=== PATIENT | female | born 1960 | race Caucasian/White ===

== ENCOUNTER 2017-08-26 08:30 | Inpatient (IN) | payer OTHER ==
--- NOTE | 2017-08-23 10:09 | HP ---
Admitting History and Physical - Primary Care Physician PCP: Sandar Abreu - Admission Chief Complaint: left breast cancer History of Present Illness: Patient is a 57 yo female noted to have a left upper outer quad mass (3.5 cm) on screening mammo and US. 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 MRI showed known cancer and normal lymph nodes. Patient is now presenting for left mastectomy with reconstruction, snbx, possible andx. History Source: Patient Limitations to Obtaining History: No Limitations - Past Medical History Cardiovascular: Yes: HTN, Hyperlipdemia Gastrointestinal: Yes: GERD Endocrine: Yes: Diabetes Mellitus - Past Surgical History Past Surgical History: Yes: Cholecystectomy Additional Past Surgical History: Umbilical hernia repair FANNY (2011 sec to prolapse) left salpingoopherctomy (2012) benign Home Medications - Allergies Allergies/Adverse Reactions: Allergies Allergy/AdvReac Type Severity Reaction Status Date / Time No Known Allergies Allergy Verified 08/23/17 10:13 - Home Medications Home Medications (free text): metformin. atorvastatin. omeprazole. propanolol. ASA. losartan. Vitamin D Family Disease History - Family Disease History Family History: Unremarkable Review of Systems - Review of Systems Constitutional: reports: No Symptoms Breasts: reports: See HPI Physical Examination Constitutional: Yes: Obese Breast(s): Yes: Left (No skin changes or nipple retraction noted. left UOQ mass noted without any other suspicous masses or adenopathy bilaterally.) Problem List - Problems (1) Cancer of left breast Code(s): C50.912 - MALIGNANT NEOPLASM OF UNSPECIFIED SITE OF LEFT FEMALE BREAST Qualifiers: Breast location: upper outer quadrant of breast Estrogen receptor status: positive Patient sex: female Qualified Code(s): C50.412 - Malignant neoplasm of upper-outer quadrant of left female breast; Z17.0 - Estrogen receptor positive status [ER+]; Z17.0 - Estrogen receptor positive status [ER+] Assessment/Plan Plan Left mastectomy with snbx, lympho possible andx and reconstruction
[2017-08-23 17:15] VITALS: BMI 39.6
[2017-08-26] MEDS ORDERED: ISOSULFAN BLUE 10 MG/ML VIAL SQ ONE (09:57)
[2017-08-26] MEDS ORDERED: ACETAMINOPHEN 325 MG TABLET (FP) PO PRN (14:02)
[2017-08-26] MEDS ORDERED: ONDANSETRON 4 MG/2 ML VIAL IVPUSH PRN ×2 (14:02→15:33)
[2017-08-26] MEDS ORDERED: CEFAZOLIN 1 GM/D5W 50 ML IVPB SCH (15:00)
[2017-08-26] MEDS ORDERED: NITROGLYCERIN 2% OINTMENT - 1GM PACKET TD ONE ×2 (15:01→15:14)
[2017-08-26] MEDS ORDERED: oxyCODONE HCL 5 MG TABLET PO PRN ×2 (15:30→15:33)
[2017-08-26] MEDS ORDERED: LACTATED RINGERS SOLUTION 1,000 ML IV SCH ×2 (15:30→15:45)
[2017-08-26] MEDS ORDERED: traMADol HCL 50 MG TABLET PO SCH (15:30)
[2017-08-26] MEDS ORDERED: PROMETHAZINE HCL 25 MG/1 ML VIAL IVPB PRN (15:33)
[2017-08-26] MEDS ORDERED: ACETAMINOPHEN 325 MG TABLET (FP) ONE (16:29)
[2017-08-26] MEDS ORDERED: traMADol HCL 50 MG TABLET ONE (16:29)
[2017-08-26] MEDS: ACETAMINOPHEN 325 MG TABLET (FP) PO SCH ×4 (16:30→23:46)
[2017-08-26] MEDS ORDERED: CEFAZOLIN 1 GM/D5W 1 GM/50 ML BAG IVPB SCH (16:45)
[2017-08-26] MEDS: DEXTROSE 5%-0.45% SALINE 1,000 ML IV SCH (17:02)
[2017-08-26] MEDS: traMADol HCL 50 MG TABLET PO SCH ×2 (17:03→22:36)
[2017-08-26] MEDS: diazePAM 2 MG TABLET PO SCH ×2 (17:04→22:35)
[2017-08-26] MEDS: CEFAZOLIN 1 GM/D5W 1 GM/50 ML BAG IVPB SCH (17:34)
[2017-08-26] MEDS: oxyCODONE HCL 5 MG TABLET PO PRN ×2 (17:52→19:33)
[2017-08-26] MEDS ORDERED: PT OWN MED DRAWER 7, Y5N ONE (21:13)
[2017-08-26] MEDS ORDERED: LOSARTAN HCTZ PO SCH (22:00)
[2017-08-26] MEDS ORDERED: ZOLPIDEM TARTRATE 5 MG TABLET PO PRN (22:00)
[2017-08-26] MEDS: ATORVASTATIN CA 80 MG TABLET (FP) PO SCH (22:35)
[2017-08-26] MEDS: metFORMIN HCL 500 MG TABLET (FP) PO SCH (22:35)
[2017-08-26] MEDS: HYDROCHLOROTHIAZIDE 25 MG TABLET (FP) PO SCH (22:37)
[2017-08-26] MEDS: PROPRANOLOL HCL 10 MG TABLET (FP) PO SCH (22:37)
[2017-08-26] MEDS: LOSARTAN POTASSIUM 50 MG TABLET (FP) PO SCH (22:37)
[2017-08-27] MEDS ORDERED: PT OWN MED DRAWER 7, Y5N ONE ×4 (02:21→21:07)
[2017-08-27] MEDS: CEFAZOLIN 1 GM/D5W 1 GM/50 ML BAG IVPB SCH ×2 (02:46→11:01)
[2017-08-27] MEDS: ACETAMINOPHEN 325 MG TABLET (FP) PO SCH ×6 (02:59→23:28)
[2017-08-27] MEDS: diazePAM 2 MG TABLET PO SCH ×3 (06:17→21:14)
[2017-08-27 09:06] LABS: HEMATOCRIT 33.9 % (32.4-45.2); HEMOGLOBIN 11.6 GM/dl (10.7-15.3); MCH 29.5 pg (25.7-33.7); MCHC 34.1 g/dl (32.0-36.0); MEAN CELL VOLUME 86.5 fl (80-96); MEAN PLT VOLUME 8.3 fl (7.5-11.1); PLATELET COUNT 345 K/MM3 (134-434); RBC 3.92 M/mm3 (3.60-5.2); RDW 13.5 % (11.6-15.6); WHITE BLOOD COUNT 13.1 K/mm3 (4.0-10.8)
--- NOTE | 2017-08-27 09:19 | PN ---
Progress Note, Physician Chief Complaint: Left breast cancer S/P left total mastectomy sentenel node biopsy POD#1 History of Present Illness: patient is sitting up , eating , pain managed with current treatment plan , - Current Medication List Current Medications: Active Medications Acetaminophen (Tylenol -) 650 mg PO Q4H [facility] Last Admin: 08/27/17 02:59 Dose: 650 mg Atorvastatin Calcium (Lipitor -) 80 mg PO [facility] Last Admin: 08/26/17 22:35 Dose: 80 mg Diazepam (Valium -) 2 mg PO TID [facility] Last Admin: 08/27/17 06:17 Dose: 2 mg Fentanyl (Sublimaze Injection -) 50 mcg IVPUSH [id number] PRN PRN Reason: PAIN-PACU ORDER X 4 DOSES ONLY Last Admin: 08/26/17 16:18 Dose: 25 mcg Heparin Sodium (Porcine) (Heparin -) 5,000 unit SQ BID [facility] Hydrochlorothiazide (Hctz -) 25 mg PO [facility] Last Admin: 08/26/17 22:37 Dose: 25 mg Dextrose/Sodium Chloride (D5-1/2ns -) 1,000 mls @ 100 mls/hr IV ASDIR [facility] Last Admin: 08/26/17 17:02 Dose: Not Given Lactated Ringer's (Lactated Ringers Solution) 1,000 mls @ 75 mls/hr IV ASDIR [facility] Last Admin: 08/26/17 17:03 Dose: Not Given Cefazolin Sodium (Ancef 1 Gm Premixed Ivpb -) 1 gram in 50 mls @ 100 mls/hr IVPB Q6H-IV [facility] Losartan Potassium (Cozaar -) 100 mg PO [facility] Last Admin: 08/26/17 22:37 Dose: 100 mg Metformin HCl (Glucophage -) 1,000 mg PO BID [facility] Last Admin: 08/26/17 22:35 Dose: 1,000 mg Ondansetron HCl (Zofran Injection) 4 mg IVPUSH Q6H PRN PRN Reason: NAUSEA AND/OR VOMITING Last Admin: 08/26/17 16:12 Dose: 4 mg Oxycodone HCl (Roxicodone -) 5 mg PO Q4H PRN PRN Reason: Pain Level < 4 Last Admin: 08/26/17 19:33 Dose: 5 mg Oxycodone HCl (Roxicodone -) 10 mg PO Q4H PRN PRN Reason: PAIN LEVEL 6-10 Pantoprazole Sodium (Protonix -) 40 mg PO DAILY [facility] Promethazine HCl (Phenergan Injection -) 12.5 mg IVPB Q6H PRN PRN Reason: NAUSEA-FOR RESCUE AFTER 15 MIN Propranolol HCl (Inderal -) 20 mg PO BID [facility] Last Admin: 08/26/17 22:37 Dose: 20 mg Tramadol HCl (Ultram -) 50 mg PO QID [facility] Last Admin: 08/26/17 22:36 Dose: 50 mg Zolpidem Tartrate (Ambien -) 5 mg PO HS PRN PRN Reason: Insomnia - Objective Vital Signs: Vital Signs Temperature 98.4 F 08/27/17 05:27 Pulse Rate 92 H 08/27/17 05:27 Respiratory Rate 18 08/27/17 05:27 Blood Pressure 120/62 08/27/17 05:27 O2 Sat by Pulse Oximetry (%) 97 08/27/17 05:27 Constitutional: Yes: No Distress Breast(s): Yes: Other (flap viable and warm, incision intact, no signs of infection, yobany drains functioning well) Labs: CBC, BMP 08/27/17 08:04 Problem List - Problems (1) Cancer of left breast Code(s): C50.912 - MALIGNANT NEOPLASM OF UNSPECIFIED SITE OF LEFT FEMALE BREAST Qualifiers: Breast location: upper outer quadrant of breast Estrogen receptor status: positive Patient sex: female Qualified Code(s): C50.412 - Malignant neoplasm of upper-outer quadrant of left female breast; Z17.0 - Estrogen receptor positive status [ER+]; Z17.0 - Estrogen receptor positive status [ER+] Assessment/Plan continue IV antibiotics spirometry SCD continue current pain management consult with hospitalist , patient is a diabetic plan for discharge tomorrow
--- NOTE | 2017-08-27 09:21 | PN ---
Progress Note (short form) - Note Progress Note: VSS AF ROSAURA thin and functioning All tissues currently viable Ambulating Dressings changed. Pain well controled Plan for discharge tomorrow with f/u 1 week
[2017-08-27] MEDS: metFORMIN HCL 500 MG TABLET (FP) PO SCH ×2 (09:24→21:23)
[2017-08-27] MEDS: CEFAZOLIN 1 GM/D5W 1 GRAM/50 ML BAG IVPB SCH ×3 (09:24→21:23)
[2017-08-27] MEDS: PANTOPRAZOLE 40 MG TABLET (FP) PO SCH (09:25)
[2017-08-27] MEDS: PROPRANOLOL HCL 10 MG TABLET (FP) PO SCH ×2 (09:25→21:22)
[2017-08-27] MEDS: traMADol HCL 50 MG TABLET PO SCH ×4 (09:25→21:13)
[2017-08-27] MEDS: HEPARIN NA (PORCINE) 5,000 UNITS/ML 1ML VIAL SQ SCH ×2 (09:26→21:13)
--- NOTE | 2017-08-27 10:49 | OP ---
DATE OF OPERATION: 08/26/2017 TITLE OF PROCEDURE: Left-sided breast reconstruction using tissue president and chief operating officer acellular dermal matrix and a left axillary complex wound closure, 4 cm. ATTENDING SURGEON: Kaushal Jensen MD The procedure was performed in combination with a left-sided mastectomy and sentinel lymph node biopsy performed by Dr. Sandra Abreu and her team. DESCRIPTION OF PROCEDURE: The patient was marked in the holding area for incisions. All risks, benefits, and alternatives to the procedure were understood with agreement to proceed. The patient was awake and aware of all incisions and resulting scars. Sequential compression stockings were applied. Antibiotics were given preoperatively. She was brought to the operating room and placed in a supine position. Position was carefully checked by surgical anesthesia teams, padded properly. She was initially positioned and draped by the mastectomy team. Mastectomy was performed as per Dr. Abreu operative note, after which my reconstruction commences. Reconstruction was performed as follows: The lateral border of the pectoralis major muscle was identified and a subpectoral plane was dissected. The inferior and inferomedial fibers of the pectoralis major muscle were divided in order to accommodate a pocket for the tissue president and chief operating officer. Once this was done, the inframammary fold was marked; 2 cm inferior to the inframammary fold were then dissected in order to lower the inframammary fold to compensate for the contralateral breast ptosis. These markings were made on the chest wall. Dermacell Acellular Dermal Matrix was rinsed in triple antibiotic solution, was oriented properly, and secured to the inframammary fold as well as the lateral mammary fold. Two sheets of 8 x 16 Dermacell were trimmed to conform and were secured in position with a running locking 2-0 PDS suture. The two sheets were secured to one another. At this point, the gloves were changed. A tissue president and chief operating officer was brought onto the field, rinsed with triple antibiotic solution, evacuated of all air, placed, oriented properly, secured with using the suture tabs of this 2-0 PDS suture. Using a closed filling system, the tissue president and chief operating officer was inflated to 250 mL of saline. The free edge of the acellular dermal matrix was then sewn to the free edge of the pectoralis major muscle with a running 2-0 PDS suture. After this, the mastectomy wounds were copiously irrigated with triple antibiotic solution, and hemostasis was meticulously achieved. Triple antibiotic solution was 1 L of normal saline, 50,000 units of Bacitracin, 80 mg of gentamicin, and 2 g of Ancef. The SPY scan was performed in order to assess the viability of the skin flaps. Viability was good with the exception of one area on the inferior skin flap. However, it was determined that excision of that area would require a vertical incision and placing corners on the inferior skin flap which may further compromise the skin. Decision, instead, was made to close without tension over drains and apply nitro paste to the area of concern. Should there be a later demarcation, it will be safer to excise that area in delayed setting. Skin edges were excised with facelift scissors. The deep capsular breast tissue was closed with a running 3-0 Monocryl suture. Skin was then closed with a running locking 3-0 Monocryl suture within the dermis followed by running subcuticular 3-0 Monocryl suture. This was done over two separate size 10 flat ROSAURA drains, brought out through lateral stab wound incisions, secured with a 3-0 silk suture. One drain was in the inferior recess of the wound, and the other drain was in the axilla and superior recess of the wound. The axilla was then closed separately with deep 3-0 Monocryl suture followed by a series of interrupted buried deep dermal 3-0 Monocryl sutures followed by a running subcuticular 3-0 Monocryl suture. All wounds were dressed with Steri-Strips. Nitro paste was placed in the area of skin flap concern on the inferior mastectomy flap. Then, 4x4s and a surgical bra were applied. Patient was awoken from anesthesia having tolerated the procedure well. Shivani [id number]
--- NOTE | 2017-08-27 11:51 | PN ---
Progress Note (short form) - Note Progress Note: ANESTHESIA POSTOP 57 YO F POD#1 S/P L BREAST MASTECTOMY WITH RECONSTRUCTION S: Patient sitting beside, drinking, without complaint, pain minimal and well controlled, tolerating PO O: Vitals WNL A/P: Patient doing well s/p GA, continue current care, encouraged ambulation and use of IS
--- NOTE | 2017-08-27 12:59 | CONSULT ---
Consultation: REQUESTING PROVIDER: CONSULT REQUEST: We have been asked to medically evaluate this patient for medical mangament. HISTORY OF PRESENT ILLNESS: Patient is a 57 yo female, with a past medical history of DM, hypertension, invasive ductal CA, pt is s/p left mastectomy with reconstruction, sent node biopsy, POD #1. REVIEW OF SYSTEMS: CONSTITUTIONAL: Absent: fever, chills, diaphoresis, generalized weakness, malaise, loss of appetite, weight change HEENT: Absent: rhinorrhea, nasal congestion, throat pain, throat swelling, difficulty swallowing, mouth swelling, ear pain, eye pain, visual changes CARDIOVASCULAR: Absent: chest pain, syncope, palpitations, irregular heart rate, lightheadedness , peripheral edema RESPIRATORY: Absent: cough, shortness of breath, dyspnea with exertion, orthopnea, wheezing, stridor, hemoptysis GASTROINTESTINAL: Absent: abdominal pain, abdominal distension, nausea, vomiting, diarrhea, constipation, melena, hematochezia GENITOURINARY: Absent: dysuria, frequency, urgency, hesitancy, hematuria, flank pain, genital pain MUSCULOSKELETAL: present: pain to surgical site Absent: myalgia, arthralgia, joint swelling, back pain, neck pain SKIN: Absent: rash, itching, pallor HEMATOLOGIC/IMMUNOLOGIC: Absent: easy bleeding, easy bruising, lymphadenopathy, frequent infections ENDOCRINE: Absent: unexplained weight gain, unexplained weight loss, heat intolerance, cold intolerance NEUROLOGIC: Absent: headache, focal weakness or paresthesias, dizziness, unsteady gait, seizure, mental status changes, bladder or bowel incontinence PSYCHIATRIC: Absent: anxiety, depression, suicidal or homicidal ideation, hallucinations. PHYSICAL EXAMINATION Vital Signs - 24 hr 08/26/17 08/26/17 08/26/17 15:31 15:35 15:40 Temperature 98.5 F Pulse Rate 89 88 105 H Respiratory 16 15 17 Rate Blood Pressure 137/71 128/66 123/60 O2 Sat by Pulse 97 97 98 Oximetry (%) 08/26/17 08/26/17 08/26/17 15:45 15:50 16:05 Temperature Pulse Rate 102 H 100 H 82 Respiratory 15 14 115 H Rate Blood Pressure 113/69 112/61 113/57 O2 Sat by Pulse 96 100 99 Oximetry (%) 08/26/17 08/26/17 08/26/17 16:20 16:35 16:43 Temperature 98.5 F Pulse Rate 83 98 H 98 H Respiratory 14 14 14 Rate Blood Pressure 108/55 110/65 110/65 O2 Sat by Pulse 96 98 Oximetry (%) 08/26/17 08/26/17 08/27/17 17:10 22:02 05:27 Temperature 98.0 F 98.1 F 98.4 F Pulse Rate 100 H 98 H 92 H Respiratory 14 18 18 Rate Blood Pressure 128/76 124/67 120/62 O2 Sat by Pulse 97 96 97 Oximetry (%) 08/27/17 08:00 Temperature Pulse Rate Respiratory Rate Blood Pressure O2 Sat by Pulse 97 Oximetry (%) GENERAL: Awake, alert, and fully oriented, in no acute distress. HEAD: Normal with no signs of trauma. EYES: Pupils equal, round and reactive to light, extraocular movements intact, sclera anicteric, conjunctiva clear. No lid lag. EARS, NOSE, THROAT: Ears normal, nares patent, oropharynx clear without exudates. Moist mucous membranes. NECK: Normal range of motion, supple without lymphadenopathy, JVD, or masses. LUNGS: Breath sounds equal, clear to auscultation bilaterally. No wheezes, and no crackles. No accessory muscle use. HEART: Regular rate and rhythm, normal S1 and S2 without murmur, rub or gallop. ABDOMEN: Soft, nontender, not distended, normoactive bowel sounds, no guarding, no rebound, no masses. No hepatomegaly or splenomegaly. MUSCULOSKELETAL: Normal range of motion at all joints. No bony deformities or tenderness. No CVA tenderness. UPPER EXTREMITIES: 2+ pulses, warm, well-perfused. No cyanosis. No clubbing. Cap refill <2 seconds. No peripheral edema. LOWER EXTREMITIES: 2+ pulses, warm, well-perfused. No calf tenderness. No peripheral edema. NEUROLOGICAL: Cranial nerves II-XII intact. Normal speech. Normal gait. PSYCHIATRIC: Cooperative. Good eye contact. Appropriate mood and affect. SKIN: surgical site, ROSAURA x 2, scant serrous sang drainage, sutures intact, no erythema wound well approximated Laboratory Results - last 24 hr 08/26/17 08/26/17 08/26/17 16:00 16:08 22:11 WBC RBC Hgb Hct MCV MCH MCHC RDW Plt Count MPV POC Glucometer 176 202 HIV 1&2 Antibody Screen Negative HIV P24 Antigen Negative 08/27/17 08/27/17 06:29 08:04 WBC 13.1 H RBC 3.92 Hgb 11.6 Hct 33.9 MCV 86.5 MCH 29.5 MCHC 34.1 RDW 13.5 Plt Count 345 MPV 8.3 POC Glucometer 130 HIV 1&2 Antibody Screen HIV P24 Antigen Active Medications Generic Name Dose Route Start Last Admin Trade Name Freq PRN Reason Stop Dose Admin Acetaminophen 650 mg 08/26/17 15:30 08/27/17 12:02 Tylenol - PO 650 mg Q4H JANELLE Administration Atorvastatin Calcium 80 mg 08/26/17 22:00 08/26/17 22:35 Lipitor - PO 80 mg HS JANELLE Administration Diazepam 2 mg 08/26/17 16:30 08/27/17 06:17 Valium - PO 2 mg TID JANELLE Administration Fentanyl 50 mcg 08/26/17 15:33 08/26/17 16:18 Sublimaze Injection - IVPUSH 25 mcg [id number] PRN Administration PAIN-PACU ORDER X 4 DOSES ONLY Heparin Sodium (Porcine) 5,000 unit 08/27/17 10:00 08/27/17 09:26 Heparin - SQ 5,000 unit BID JANELLE Administration Hydrochlorothiazide 25 mg 08/26/17 22:00 08/26/17 22:37 Hctz - PO 25 mg HS JANELLE Administration Dextrose/Sodium Chloride 1,000 mls @ 100 mls/hr 08/26/17 14:15 08/26/17 17:02 D5-1/2ns - IV Not Given ASDIR JANELLE Cefazolin Sodium 1 gram in 50 mls @ 100 mls/hr 08/27/17 09:00 08/27/17 09:24 Ancef 1 Gm Premixed Ivpb - IVPB 100 mls/hr Q6H-IV JANELLE Administration Losartan Potassium 100 mg 08/26/17 22:00 08/26/17 22:37 Cozaar - PO 100 mg HS JANELLE Administration Metformin HCl 1,000 mg 08/26/17 22:00 08/27/17 09:24 Glucophage - PO 1,000 mg BID JANELLE Administration Ondansetron HCl 4 mg 08/26/17 15:33 08/26/17 16:12 Zofran Injection IVPUSH 4 mg Q6H PRN Administration NAUSEA AND/OR VOMITING Oxycodone HCl 5 mg 08/26/17 15:27 08/26/17 19:33 Roxicodone - PO 5 mg Q4H PRN Administration Pain Level < 4 Oxycodone HCl 10 mg 08/26/17 15:30 Roxicodone - PO Q4H PRN PAIN LEVEL 6-10 Pantoprazole Sodium 40 mg 08/27/17 10:00 08/27/17 09:25 Protonix - PO 40 mg DAILY JANELLE Administration Promethazine HCl 12.5 mg 08/26/17 15:33 Phenergan Injection - IVPB Q6H PRN NAUSEA-FOR RESCUE AFTER 15 MIN Propranolol HCl 20 mg 08/26/17 22:00 08/27/17 09:25 Inderal - PO 20 mg BID JANELLE Administration Tramadol HCl 50 mg 08/26/17 16:30 08/27/17 09:25 Ultram - PO 50 mg QID JANELLE Administration Zolpidem Tartrate 5 mg 08/26/17 22:00 Ambien - PO HS PRN Insomnia ASSESSMENT/PLAN: 1) heme/onc invasive ductal ca, s/p left breast mastectomy - POD #1, prn pain medication - followed by Dr Abreu/Levon 2) endo NIDDM - continue metformin advise fingersticks achs 3) cardiovascular hypertension - continue inderal, losartan, and hctz, b/p at goal Dispo: We will continue to follow the patient. Thank you for this consultative opportunity. Visit type - Emergency Visit Emergency Visit: No - New Patient This patient is new to me today: Yes Date on this admission: 08/27/17 - Critical Care Critical Care patient: No
[2017-08-27] MEDS: DEXTROSE 5%-0.45% SALINE 1,000 ML IV SCH (16:26)
[2017-08-27] MEDS: HYDROCHLOROTHIAZIDE 25 MG TABLET (FP) PO SCH (21:14)
[2017-08-27] MEDS: LOSARTAN POTASSIUM 50 MG TABLET (FP) PO SCH (21:14)
[2017-08-27] MEDS: ATORVASTATIN CA 80 MG TABLET (FP) PO SCH (21:14)
[2017-08-28] MEDS: CEFAZOLIN 1 GM/D5W 1 GRAM/50 ML BAG IVPB SCH ×2 (02:33→11:56)
[2017-08-28] MEDS: ACETAMINOPHEN 325 MG TABLET (FP) PO SCH ×2 (05:52→10:00)
[2017-08-28] MEDS: diazePAM 2 MG TABLET PO SCH (06:50)
[2017-08-28 07:39] VITALS: BP 115/62; PULSE 72; TEMP 98.1
[2017-08-28] MEDS: oxyCODONE HCL 5 MG TABLET PO PRN (08:20)
--- NOTE | 2017-08-28 08:43 | OP ---
DATE OF OPERATION: 08/26/2017 PREOPERATIVE DIAGNOSIS: Left breast cancer. POSTOPERATIVE DIAGNOSIS: Left breast cancer. PROCEDURE: Left total mastectomy and sentinel node biopsy with immediate reconstruction with tissue sawmill manager. SURGEONS: Ryan Childers MD and Kaushal Jensen MD FISHING TOOL OPERATOR: JAYDEN Levin ANESTHESIA: General. ANESTHESIOLOGIST: Manish Beasley MD SPECIMENS: 1. [place] node. 2. [place] node. 3. Right mastectomy. DRAINS: Two No. 10 J-Ps. INDICATION FOR PROCEDURE: The patient is a 57-year-old woman who was noted to have a left upper outer quadrant mass measuring 3.5 cm on screening mammogram and ultrasound. Ultrasound-guided core biopsy showed invasive ductal cancer. MRI showed the known cancer and normal-appearing lymph nodes. After a discussion of her surgical options, she chose mastectomy with reconstruction. She will be getting reconstruction by Dr. Jensen using a tissue sawmill manager. The procedures, risks and complications were discussed with her prior to surgery. PROCEDURE: The patient was taken to Nuclear Medicine where she underwent lymphoscintigraphy. She was then taken back to the ambulatory surgical unit where informed consent was obtained. Sequential compression devices were placed on both legs. She was taken to the operating room and placed on the operating table in the supine position. She was intubated. She received antibiotics prior to surgery. Both breasts and upper abdomen were prepped and draped in the usual fashion. A timeout was performed. Examination of the left breast showed a mass in the upper outer quadrant. The breast was injected with Lymphazurin and massaged for 5 minutes. An incision was made in the axilla. The incision was deepened using electrocautery until the axillary fat pad was exposed. The Navigator probe was used to identify an area of high counts. Dissection in this region revealed 2 small lymph nodes. There were blue lymphatics leading to the nodes. The nodes were removed and sent for frozen section. Subsequent dissection revealed a blue node deep in the axilla. This node was removed and sent for frozen section. Frozen section analysis showed 5 nodes which were all negative. Attention was then turned to the mastectomy. An elliptical incision was made around the nipple-areolar complex. Electrocautery was used to create flaps. The superior flap was created up to the clavicle. Flap was continued medially to the sternal border and laterally to the axilla. The inferior flap continued towards the junction with the abdominal musculature. The breast was removed along with the underlying pectoralis major fascia. In the tail of the breast 2 blue nodes were identified which were included with the specimen. The breast was marked with a long lateral stitch and a short superior stitch. The breast was taken to Mammography for a specimen radiograph. The breast was then placed in formalin and sent to Pathology. The procedure then continued with the reconstruction. This will be dictated as a separate procedure by Dr. Jensen. He will also dictate the closure and placement of the drains. At the end of the procedure, all sponge, lap and instrument counts were correct. The wounds were dressed with sterile dressings and a surgical bra was placed. The patient was extubated and taken to the PACU in satisfactory condition. RYAN CHILDERS M.D. [id number] MTDD
[2017-08-28] MEDS: PROPRANOLOL HCL 10 MG TABLET (FP) PO SCH (10:00)
[2017-08-28] MEDS: HEPARIN NA (PORCINE) 5,000 UNITS/ML 1ML VIAL SQ SCH (10:00)
[2017-08-28] MEDS: traMADol HCL 50 MG TABLET PO SCH (10:00)
[2017-08-28] MEDS: PANTOPRAZOLE 40 MG TABLET (FP) PO SCH (10:00)
[2017-08-28] MEDS ORDERED: PT OWN MED DRAWER 7, Y5N ONE (10:09)
[2017-08-28] MEDS: metFORMIN HCL 500 MG TABLET (FP) PO SCH (10:56)
--- NOTE | 2017-08-28 11:02 | DS ---
Physical Examination Vital Signs: Vital Signs Temperature 98.1 F 08/28/17 06:00 Pulse Rate 72 08/28/17 06:00 Respiratory Rate 19 08/28/17 06:00 Blood Pressure 115/62 08/28/17 06:00 O2 Sat by Pulse Oximetry (%) 97 08/28/17 07:38 Wound/Incision: Yes: Clean/Dry (No erythema or drainage. Skin flaps warm and viable. JPs with serosanguineous effluent.) Labs: CBC, BMP 08/27/17 08:04 Discharge Summary Reason For Visit: LEFT BREAST CA Procedures: Principal: Left total mastectomy, sentinel node biopsy, and insertion of tissue customer experience specialist Hospital Course: Patient did well after surgery. Pain was well controlled. Condition: Good - Instructions Diet, Activity, Other Instructions: Post Operative Instructions - [facility] We hope your recovery will be uneventful. For those of you who have been given general anesthesia, there is a possibility you might have some lightheadedness and possibly nausea. It is important that each patient, especially those who have had general anesthesia, follow these instructions, please: 1. Do NOT operate a motor vehicle for 24 hours. 2. Do NOT drink any alcoholic beverages for 24 hours. 3. Do NOT take any sedatives, narcotics, or tranquilizers for 24 hours unless specifically ordered by your surgeon. 4. Do NOT undertake any strenuous exercise or outside activity for 24 hours unless specifically permitted by your surgeon. 5. Eat light foods that are easy to digest. If you have any problems with nausea and vomiting, lie down and rest. If it continues, call your surgeon. 6. Call your surgeon AT ONCE if you have problems with: a. Bleeding b. Urinating c. Excessive pain or drainage d. Numbness If any problems occur, call your physician first. If you cannot reach him/her, call the Ambulatory Surgery Unit at [phone], or the Emergency Room at . Follow up with Drs. Moyer / Gopal in 7 days. Medication: Vicodin E-S OR Percocet 1-2 tablets every 4-6 hrs as needed for 5-7 days. Wound Care: Keep wound dry and clean for 48 hours. You may remove the dressing after 48 hours and may shower. Keep steri-strips in place until follow-up appointment No heavy lifting or strenuous activities. BREAST SURGERY INSTRUCTIONS Alvaro Moyer M.D., FACS Mahesh Moyer M.D., FACS Tariq Herron M.D., FACS 1. Please call the office at to make a follow up appointment with your surgeon. This number can be also used for any urgent issues you may have. 2. Call us immediately if any of the following occur: *Bleeding from the incision or drain site (a small amount is normal) *Fever or chills *Redness and worsening tenderness around the surgical site *Drainage of pus or fluid from the incision or drain site 3. You may change the surgical dressing two (2) days after your surgery, and may shower then. If you have drains, you may shower after they have been removed, until then take a sponge bath. 4. It is normal for there to be some bruising and tenderness around the surgical site, and the breast may also be firm in this area. 5. Please wear a comfortable bra (sports or surgical bra) all day and all night until your first follow-up visit with your surgeon. 6. The pain medicine you have been prescribed may make you constipated; make sure you drink plenty of water. You may use an over the counter laxative if needed. 7. You may resume your normal diet after surgery, although you may want to avoid rich foods for the first twenty-four (24) hours after surgery. Alcoholic drinks should be avoided while taking the prescribed pain medicine. 8. You may resume normal activities as long as there is no discomfort, but do not do upper body exercises until after your follow-up appointment. Do not lift anything heavier than a large phone book. You may resume driving once you have stopped taking the prescribed pain medicine and feel comfortable doing arm movements. WEAR BRA< NO SHOWER< EMPTY AND RECORD [employer] OUTPUT Referrals: Sandra Abreu MD [Staff Physician] - Kaushal Jensen MD [Staff Physician] - Disposition: HOME - Home Medications Comprehensive Discharge Medication List: Ambulatory Orders Aspirin [Aspirin EC] 81 mg PO DAILY 08/23/17 Atorvastatin Ca [Lipitor] 80 mg PO HS 08/23/17 Losartan-Hctz 100-25 mg Tab 1 each PO HS 08/23/17 Metformin HCl [Metformin HCl ER] 1,000 mg PO BID 08/23/17 Omeprazole 40 mg PO DAILY 08/23/17 Propranolol HCl 20 mg PO BID 08/23/17 Cefadroxil 500 mg PO BID #20 capsule 08/27/17 Oxycodone HCl/Acetaminophen [Percocet 5-325 mg Tablet] 1 - 2 tab PO Q6H PRN #30 tab MDD 6 08/27/17
--- NOTE | 2017-09-03 09:28 | PATH ---
Surgical Pathology Report Patient Name: FELICIA VÁZQUEZ Med. Rec. #: [id number] /Age/Gender: 1960 (Age: 57) / F Account: [id number] Location: [facility] MED-SURG Taken: 08/26/2017 Received: 08/26/2017 Reported: 09/03/2017 Physicians: Sandra Abreu M.D. Specimen(s) Received A: LEFT AXILLARY SENTINEL NODE. FS B: LEFT AXILLARY SENTINEL NODE. FS C: LEFT MASTECTOMY D: LEFT AXILLARY EXTRA FAT Clinical History None Provided Intraoperative Consult Diagnosis A. Left axillary sentinel node #2, frozen section: Four negative lymph nodes (0/4). Note: Frozen section evaluation is limited due to the fatty nature of the specimen. B. Left axillary sentinel node #3, frozen section: One negative lymph node (0/1). Note: Frozen section evaluation is limited due to the fatty nature of the specimen. Amadeo Adrian M.D., 08/26/17 Final Diagnosis A. LYMPH NODES, LEFT AXILLARY SENTINEL NODE #2, EXCISION: THREE BENIGN LYMPH NODES (0/3) BY STANDARD HEMATOXYLIN AND EOSIN STAIN (MULTIPLE LEVELS EXAMINED). B. LYMPH NODE, LEFT AXILLARY SENTINEL NODE #3, EXCISION: ONE BENIGN LYMPH NODE (0/1) BY STANDARD HEMATOXYLIN AND EOSIN STAIN (MULTIPLE LEVELS EXAMINED). C. LEFT BREAST, MASTECTOMY: MODERATELY DIFFERENTIATED INVASIVE DUCTAL CARCINOMA, JULIO GRADE 2 OF 3 (TUBULE SCORE 2 OF 3, NUCLEAR GRADE 2 OF 3, MITOTIC SCORE TO 3, TOTAL 6 OF 9), GROSSLY MEASURING 3.4 CM IN GREATEST DIMENSION. MINOR COMPONENT OF DUCTAL CARCINOMA IN SITU (DCIS), INTERMEDIATE NUCLEAR GRADE, CRIBRIFORM PATTERN WITH CENTRAL NECROSIS PRESENT. CARCINOMA IS PRESENT THE UPPER OUTER QUADRANT, AND INVASIVE AND IN SITU CARCINOMA ARE AT LEAST 1.2 CM FROM THE NEAREST (ANTERIOR) MARGIN. NO LYMPH VASCULAR INVASION IDENTIFIED. REMAINING BREAST TISSUE WITH FOCAL ATYPICAL LOBULAR HYPERPLASIA (ALH), ARISING IN A BACKGROUND OF FIBROCYSTIC CHANGES INCLUDING USUAL DUCTAL HYPERPLASIA (UDH), COLUMNAR CELL CHANGE, INTRADUCTAL PAPILLOMATOSIS, STROMAL FIBROSIS, DUCTAL DILATATION, CYSTIC APOCRINE METAPLASIA, AND ASSOCIATED CALCIFICATION. D. LEFT AXILLARY FAT, EXCISION: BENIGN ADIPOSE TISSUE. NO LYMPH NODES IDENTIFIED. Comment: Immunohistochemical stains performed at [facility], [place], [place] ([id number]) and interpreted at [facility] show the following results: No "inside-out" pattern is identified with ADRIAN. No lymph vascular invasion is identified with D2-40, CD31, CD34 stains. Also see prior Slide Review [id number]. Comments Breast Invasive Carcinoma: Surgical Pathology Cancer Case Summary Based on AJCC/UICC TNM, 7th edition Procedure _X__ Total mastectomy (including nipple and skin) Lymph Node Sampling (select all that apply) (required only if lymph nodes are present in the specimen) _X__ [place] lymph node(s) Specimen Laterality _X__ Left Tumor Size: Size of Largest Invasive Carcinoma Greatest dimension of largest focus of invasion over 1 mm: 34 mm Tumor Focality _X__ Single focus of invasive carcinoma Macroscopic and Microscopic Extent of Tumor Skin _X__ Invasive carcinoma does not invade into the dermis or epidermis Nipple _X__ DCIS does not involve the nipple epidermis Ductal Carcinoma In Situ (DCIS) _X__ DCIS is present _X__ as a minor component (< 25% of tumor) Histologic Type of Invasive Carcinoma : _X__ Invasive carcinoma of no special type (ductal, not otherwise specified) Histologic Grade: (Julio Histologic Score) Tubular Differentiation _X__ Score 2 Nuclear Pleomorphism _X__ Score 2 Mitotic Rate _X__ Score 2 Overall Grade _X__ Grade 2: scores of 6 or 7 (moderately differentiated) Margins _X__ Margins uninvolved by invasive carcinoma (required only if residual invasive carcinoma is present in specimen) Distance from closest margin: 12 mm Specify margin: ANTERIOR _X__ Margins uninvolved by DCIS (required only if residual DCIS is present in specimen) Distance from closest margin: at least 12 mm Specify margin: ANTERIOR Lymph-Vascular Invasion _X__ Not identified Lymph Nodes Total number of lymph nodes examined (sentinel and nonsentinel): 4 Number of sentinel lymph nodes examined: 4 Number of lymph nodes with macrometastases ( > 2 mm): 0 Number of lymph nodes with micrometastases (>0.2 mm to 2 mm and/or >200cells):0 Number of lymph nodes with isolated tumor cells (=0.2 mm and =200 cells): 0 Extranodal Extension _X__ Not applicable Pathologic Staging (pTNM) Primary Tumor (Invasive Carcinoma): pT2 Regional Lymph Nodes (pN): pN0(sn) Biomarker Studies Results of ER and SD studies performed on this specimen (block #C3) at [place], [place] ([id number]) are as follows: ER (clone [id number] mouse monoclonal antibody by [employer]): >95% nuclear staining with strong intensity (Positive). SD (clone16 mouse monoclonal antibody by [employer]): ~10% nuclear staining with moderate intensity (Positive). Results of Her2 (IHC) & Ki-67 studies performed on this (block #C3) at [place], [place] ( [id number]) are as follows: Her2 IHC (EP3 from [employer], formerly known as [id number], using [employer] Polymer Refine detection kit): 0 Negative Ki67: ~35% (High proliferative index Positive and negative controls (internal if applicable) show appropriate results. Formalin fixation and cold ischemic times are within current ASCO/CAP recommendations for ER, SD and Her2 testing. Electronically Signed Rito Pizarro M.D. Gross Description A. Received fresh for frozen section labeled "left axillary sentinel lymph nodes #2" is a 3.2 x 2.0 x 0.8 cm portion of nodular fatty tissue. Four possible lymph nodes ranging from 0.3-1.3 cm in greatest dimension are identified within the adipose tissue. A frozen section is performed on the lymph nodes. The frozen section residue is entirely submitted in 2 cassettes as follows: 1-largest lymph node; 2-three smaller lymph nodes. B. Received fresh for frozen section labeled "left axillary sentinel node #3," is a 2.7 x 1.5 x 1.0 cm portion of nodular fatty tissue. One lymph node measuring 2.4 x 1.2 x 0.8 cm is identified within the adipose tissue. The lymph node is bisected. A frozen section is performed on one half of the lymph node and a touch prep is performed on the other half. The lymph node is entirely submitted in 2 cassettes as follows: 1-frozen section residue; 2-other half of lymph node. C. Received in formalin, labeled "left mastectomy," is a 1295 gram, 17.0 x 17.0 x 8.0 cm. left mastectomy specimen with a short suture marking the superior aspect and a long suture marking the lateral aspect of the specimen, per the surgeon. The anterior surface displays a 14.0 x 5.5 cm black, elliptical portion of skin with a 1.4 cm in diameter nipple. The deep margin is inked black and the anterior soft tissue margin is inked blue. The specimen is serially sectioned from medial to lateral. Sectioning reveals a 3.4 x 3.0 x 2.0 cm black, indurated mass in the upper outer quadrant (UOQ). The mass is 1.5 cm from anterior soft tissue margin and 2.0 cm from the deep margin. Bilingual Hr Generalist sections are submitted in 18 cassettes as follows: 1-serially sectioned nipple; 2-subareolar shave; 3-4-one full-thickness bisected section of mass; 5-the mass with anterior soft tissue margin; 6-mass with deep margin; 7-additional deep margin from area of mass; 3-5-bizpxlslle UOQ; 10-11-lower outer quadrant; 12-14-upper inner quadrant; 15-16-lower inner quadrant; 17-skin and inferior soft tissue margin; 18-deep margin. Time to formalin fixation: 40 minutes Total formalin fixation time: Approximately 28 hours. D. Received in formalin labeled "left axillary extra fat," is a 3.8 x 2.3 x 0.8 cm aggregate of yellow, lobulated adipose tissue. No definite lymph nodes are identified. The specimen is entirely submitted in 2 cassettes. 08/27/2017 [facility]08/27/2017
== END 2017-08-28 13:00 | disposition home or self-care (01) | DRG 362 ==
LOC: FM/S 09:54
PROVIDERS: ADMIT Surgery; ATTEND Surgery
PROC: 0HTU0ZZ Resection of Left Breast, Open Approach (ICD-10-PCS; principal; 2017-08-26 11:49)
PROC: 07B60ZX Excision of Left Axillary Lymphatic, Open Approach, Diagnostic (ICD-10-PCS; 2017-08-26 11:49)
PROC: 0HHU0NZ Insertion of Tissue Expander into Left Breast, Open Approach (ICD-10-PCS; 2017-08-26 11:49)
DX: C50.412 Malignant neoplasm of upper-outer quadrant of left female breast (principal); I10 Essential (primary) hypertension; E78.5 Hyperlipidemia, unspecified; E11.9 Type 2 diabetes mellitus without complications; Z17.0 Estrogen receptor positive status [ER+]
CPT/HCPCS: 36415; 78195-TC; 82962; 85027; 87389; 88307-TC; 88331-TC; 88332; 94010; 94760; A9541; J1644

== ENCOUNTER 2024-10-15 19:41 | Inpatient (IN) | payer BC, OTHER ==
[2024-10-15] MEDS ORDERED: PIPERACILLIN/TAZOB 4.5 GM 4.5 GM/100 ML BAG IVPB ONE (20:03)
[2024-10-15] MEDS ORDERED: VANCOMYCIN 1 GM PREMIX (F) 1 GM/200 ML BAG ONE ×2 (20:03→22:48)
[2024-10-15 20:05] VITALS: BMI 48.8
[2024-10-15 20:32] LABS: VENOUS BASE EXCESS -20.8 mmol/L (-2-2); VENOUS O2 SATURATION 17.9 % (70-80); VENOUS PCO2 58.3 mmHg (38-52)
[2024-10-15 20:34] LABS: VENOUS PH 6.918 (7.310-7.410)
[2024-10-15] MEDS ORDERED: ROCURONIUM BROMIDE 50 MG/5 ML SYRINGE ONE (20:40)
[2024-10-15] MEDS ORDERED: KETAMINE HCL 200 MG/20 ML VIAL ONE (20:42)
[2024-10-15 20:56] LABS: CHLORIDE 106 mmol/L (98-107); POTASSIUM 4.4 mmol/L (3.5-5.1); SODIUM 135 mmol/L (136-145)
[2024-10-15 21:00] LABS: ALBUMIN 0.2 g/dl (3.4-5.0); ANION GAP 26 mmol/L (4-13); GLUCOSE,RANDOM 107 mg/dL (74-106)
[2024-10-15 21:03] LABS: SGOT/AST 9 U/L (15-37); SGPT/ALT 6 U/L (13-61)
[2024-10-15 21:05] LABS: BILIRUBIN,TOTAL < 0.1 mg/dL (0.2-1); TOT PROT 0.6 g/dl (6.4-8.2)
[2024-10-15 21:06] LABS: ALK PHOS 28 U/L (45-117)
[2024-10-15 21:08] LABS: CALCIUM 6.3 mg/dL (8.5-10.1); CREATININE < 0.2 mg/dL (0.55-1.3)
[2024-10-15 21:11] LABS: CO2 2 mmol/L (21-32)
[2024-10-15] MEDS: NOREPINEPHRINE BITARTRATE 4,000 MCG in DEXTROSE 5%-WATER - 496 ML IV SCH (21:15)
[2024-10-15] MEDS ORDERED: KCL 20 MEQ PREMIX BAG 20 MEQ/100 ML INFUS.BAG IVPB SCH (21:15)
[2024-10-15] MEDS ORDERED: DEXTROSE 5%-LACTATED RINGERS 1,000 ML IV SCH (21:15)
[2024-10-15 21:21] LABS: LACTIC ACID 25.4 mmol/L (0.4-2.0)
[2024-10-15 21:35] LABS: N-TERMINAL BNP 1120.4 pg/ml (5-125)
[2024-10-15 22:26] LABS: VENOUS BASE EXCESS -13.9 mmol/L (-2-2); VENOUS O2 SATURATION 81.1 % (70-80); VENOUS PCO2 28.8 mmHg (38-52); VENOUS PH 7.244 (7.310-7.410)
[2024-10-15 22:30] LABS: HEMATOCRIT 24.2 % (32.4-45.2); HEMOGLOBIN 7.8 GM/dL (10.7-15.3); MCH 29.2 pg (25.7-33.7); MCHC 32.4 g/dl (32.0-36.0); MEAN CELL VOLUME 90.1 fl (80-96); MEAN PLT VOLUME 6.6 fl (7.5-11.1); PLATELET COUNT 130 10^3/uL (134-434); RBC 2.69 M/mm3 (3.60-5.2); RDW 20.4 % (11.6-15.6); WHITE BLOOD COUNT 4.6 K/mm3 (4.0-10.0)
[2024-10-15 22:36] LABS: INR 3.51 (0.83-1.09); PROTHROMBIN TIME (PATIENT) 38.6 SEC (9.7-13.0)
[2024-10-15 23:05] LABS: ANISOCYTOSIS 2+; CORRECTED WBC 4.11 K/mm3; MACROCYTOSIS 0; OVALOCYTE 1+
[2024-10-15 23:09] LABS: CHLORIDE 99 mmol/L (98-107); POTASSIUM 4.7 mmol/L (3.5-5.1); SODIUM 134 mmol/L (136-145)
[2024-10-15 23:11] LABS: ANION GAP 22 mmol/L (4-13); CO2 14 mmol/L (21-32); MAGNESIUM 1.6 mg/dL (1.8-2.4)
[2024-10-15 23:14] LABS: CREATININE 1.1 mg/dL (0.55-1.3); SGOT/AST 520 U/L (15-37); SGPT/ALT 275 U/L (13-61)
[2024-10-15 23:16] LABS: BILIRUBIN,TOTAL 0.5 mg/dL (0.2-1)
[2024-10-15 23:18] LABS: ALBUMIN 1.3 g/dl (3.4-5.0); ALK PHOS 166 U/L (45-117); BLOOD UREA NITROGEN 46.9 mg/dL (7-18); CALCIUM 9.2 mg/dL (8.5-10.1); GLUCOSE,RANDOM 532 mg/dL (74-106); TOT PROT 3.1 g/dl (6.4-8.2)
[2024-10-15] MEDS: LACTATED RINGERS SOLUTION 1000 ML INFUS.BAG IV ONE (23:27)
[2024-10-15] MEDS: PIPERACILLIN/TAZOBACTAM 4.5 GM VIAL IVPB ONE (23:27)
[2024-10-15] MEDS: VASopressin 40 UNITS/100 ML BAG IV SCH (23:28)
[2024-10-15] MEDS ORDERED: DEXTROSE 50%-WATER - 25 GM/50 ML VIAL IVPUSH PRN (23:37)
[2024-10-15] MEDS ORDERED: PROPOFOL 1,000,000 MCG/100 ML VIAL ONE (23:43)
[2024-10-15] MEDS: PROPOFOL 1,000,000 MCG/100 ML VIAL IVPB SCH (23:58)
[2024-10-16] MEDS: VANCOMYCIN 2,000 MG in DEXTROSE 5%-WATER - 500 ML IVPB ONE (00:29)
[2024-10-16] MEDS ORDERED: SODIUM CHLORIDE 1,000 ML with POTASSIUM CHLORIDE 40 MEQ IV SCH (00:30)
[2024-10-16] MEDS: REMDESIVIR 200 MG in SODIUM CHLORIDE 250 ML IVPB ONE (01:18)
[2024-10-16] MEDS: INSULIN REGULAR 100 UNITS in SODIUM CHLORIDE 99 ML IVPB SCH (01:20)
[2024-10-16] MEDS: DEXMEDETOMIDINE PREMIX 400 MCG/100 ML BAG IVPB SCH (01:35)
[2024-10-16] MEDS: NOREPINEPHRINE BITARTRATE/D5W 8 MG/250 ML BAG IVPB SCH (01:38)
[2024-10-16] MEDS: PIPERACILLIN/TAZOB 4.5 GM 4.5 GM/100 ML BAG IVPB SCH (01:40)
[2024-10-16] MEDS: INSULIN REGULAR HUMAN 100 UNITS/ML *VIAL IVPUSH PRN (02:35)
[2024-10-16] MEDS: HYDROCORTISONE SOD SUCCINATE 100 MG/2 ML VIAL IVPUSH SCH (02:36)
[2024-10-16] MEDS: SODIUM CHLORIDE 1,000 ML IV STA ×3 (03:05→04:27)
[2024-10-16] MEDS: KCL 20 MEQ PREMIX BAG 20 MEQ/100 ML INFUS.BAG IVPB SCH (03:05)
[2024-10-16 06:19] LABS: ARTERIAL BLD GAS O2 SATURATION 89.1 % (95-98); ARTERIAL BLOOD GAS BASE EXCESS -14.4 mmol/L (-2-2); ARTERIAL BLOOD GAS PO2 57.7 mmHg (80-100)
[2024-10-16 06:44] LABS: VENT MODE A/C; VENT RATE 28
[2024-10-16] MEDS: D5-LR+20 MEQ KCL - 20 MEQ/1,000 ML INFUS.BAG IV SCH (06:55)
[2024-10-16 07:30] LABS: PROTHROMBIN TIME (PATIENT) 53.9 SEC (9.7-13.0)
[2024-10-16 07:36] LABS: HEMATOCRIT 21.6 % (32.4-45.2); MCH 29.4 pg (25.7-33.7); MCHC 32.2 g/dl (32.0-36.0); MEAN CELL VOLUME 91.2 fl (80-96); MEAN PLT VOLUME 7.2 fl (7.5-11.1); PLATELET COUNT 77 10^3/uL (134-434); RBC 2.37 M/mm3 (3.60-5.2); RDW 21.2 % (11.6-15.6)
[2024-10-16 07:42] LABS: CHLORIDE 104 mmol/L (98-107); POTASSIUM 5.5 mmol/L (3.5-5.1); SODIUM 131 mmol/L (136-145)
[2024-10-16 07:52] LABS: ANION GAP 16 mmol/L (4-13); BLOOD UREA NITROGEN 43.5 mg/dL (7-18); CO2 10 mmol/L (21-32)
[2024-10-16 07:55] LABS: CALCIUM 7.3 mg/dL (8.5-10.1); INR 4.9 (0.83-1.09); MAGNESIUM 1.1 mg/dL (1.8-2.4); PHOSPHOROUS 3.4 mg/dL (2.5-4.9)
[2024-10-16 08:03] LABS: GLUCOSE,RANDOM 683 mg/dL (74-106); LACTIC ACID 6.5 mmol/L (0.4-2.0)
[2024-10-16] MEDS: SODIUM CHLORIDE 1,000 ML IV SCH (08:45)
[2024-10-16 08:55] LABS: ANISOCYTOSIS 0; MACROCYTOSIS 0
[2024-10-16] MEDS: MUPIROCIN 2% TOPICAL OINTMENT FOR DECOLONIZATION NS SCH (09:01)
[2024-10-16] MEDS: PANTOPRAZOLE SODIUM 40 MG VIAL IVPUSH SCH (09:01)
[2024-10-16 09:45] LABS: LACTIC ACID 10.6 mmol/L (0.4-2.0)
[2024-10-16 10:06] VITALS: BP 47/28; PULSE 94; RESP 18; TEMP 98.2
[2024-10-16] MEDS ORDERED: CHLORHEXIDINE GLUCONATE 4% CLEANSER FOR DECOLONIZATION TP SCH (22:00)
[2024-10-18] MEDS ORDERED: PIPERACILLIN/TAZOB 4.5 GM 4.5 GM/100 ML BAG IVPB SCH (02:00)
== END 2024-10-16 15:06 | disposition expired | DRG 720 ==
LOC: JER 19:41 → JERBED 22:04 → JICU 10-16 00:51
PROVIDERS: ADMIT Internal Medicine Pulmonary Disease; ATTEND Internal Medicine Pulmonary Disease
PROC: 06HM33Z Insertion of Infusion Device into Right Femoral Vein, Percutaneous Approach (ICD-10-PCS; principal; 2024-10-15)
PROC: 0BH17EZ Insertion of Endotracheal Airway into Trachea, Via Natural or Artificial Opening (ICD-10-PCS; 2024-10-15)
PROC: 5A1935Z Respiratory Ventilation, Less than 24 Consecutive Hours (ICD-10-PCS; 2024-10-15)
PROC: 4A133B1 Monitoring of Arterial Pressure, Peripheral, Percutaneous Approach (ICD-10-PCS; 2024-10-16)
PROC: 4A133J1 Monitoring of Arterial Pulse, Peripheral, Percutaneous Approach (ICD-10-PCS; 2024-10-16)
DX: A41.89 Other specified sepsis (principal); R65.21 Severe sepsis with septic shock; E11.10 Type 2 diabetes mellitus with ketoacidosis without coma; J12.82 Pneumonia due to coronavirus disease 2019; L89.150 Pressure ulcer of sacral region, unstageable; I46.9 Cardiac arrest, cause unspecified; U07.1 COVID-19; C50.412 Malignant neoplasm of upper-outer quadrant of left female breast; C79.51 Secondary malignant neoplasm of bone; J96.01 Acute respiratory failure with hypoxia; C78.00 Secondary malignant neoplasm of unspecified lung; C79.31 Secondary malignant neoplasm of brain; K21.9 Gastro-esophageal reflux disease without esophagitis; E87.20 Acidosis, unspecified
CPT/HCPCS: 0241U-QW; 36415; 36600; 70450-TC; 71045-TC-FY; 71275-TC; 80048; 80053; 82010; 82803; 82962; 83036; 83605; 83735; 83880; 83930; 84100; 84443; 84484; 85025; 85384; 85610; 85730; 87040; 87186; 93005; 93010; 99285-25; G0480; J0248; J3490; Q9967